=== PATIENT | female | born 1965 | race American Indian/Alaskan Native ===

== ENCOUNTER 2017-06-23 06:19 | Observation (INO) | payer OTHER ==
[2017-06-23] MEDS ORDERED: Sodium Chloride 0.9% 500 ML IV STA (07:12)
--- NOTE | 2017-06-23 07:32 | CP.PCM.CON ---
History of Present Illness - History of Present Illness History of Present Illness: ORthopedic consultation Dr. Malone 52F complains of severe right knee pain, she ssays she fell about a year ago, and the pain keeps getting worse to the point she can not walk without severe pain. No recent trauma, falls, denies fever/chills/CP/SOB/dizziness/palp Past Patient History - Past Social History Smoking Status: Never Smoked - PSYCHIATRIC Hx Substance Use: No - SURGICAL HISTORY Other/Comment: GASTRIC BYPASS, RT. CLAVICLE SURGERY, RT. KNEE - ANESTHESIA Hx Anesthesia: Yes Meds Home Medications: Home Medication List Medication Instructions Recorded Confirmed Type oxyCODONE/Acetaminophen [Percocet 1 ea PO Q4H PRN #20 tab 06/23/17 Rx 5/325 mg Tab] Allergies/Adverse Reactions: Allergies Allergy/AdvReac Type Severity Reaction Status Date / Time No Known Allergies Allergy Verified 06/23/17 06:36 - Medications Medications: Current Medications Sodium Chloride (Sodium Chloride 0.9%) 500 mls @ 100 mls/hr IV .Q5H STA Stop: 06/23/17 12:11 Physical Exam - Constitutional Appears: Well, In Acute Distress Additional comments: severe limp when attempting to walk - Extremities Exam Additional comments: lacking full extension pain with attempts at full extension calves soft NT neg homans +DP/PT pulses sensation intact Severe TTP medial joint line>left no lax varus/valgus - Expanded Lower Extremities Exam Right Knee exam: effusion, tenderness Ankle exam: FULL ROM Neuro vacular tendon exam: no vascular compromise - Neurological Exam Neurological exam: Alert, Oriented x3 - Psychiatric Exam Psychiatric exam: Normal Affect, Normal Mood - Skin Skin Exam: Dry, Intact, Normal Color, Warm Additional comments: mild effusion on right knee Results - Vital Signs Recent Vital Signs: Last Vital Signs Temp 98 F 06/23/17 06:36 Pulse 80 06/23/17 06:36 Resp 16 06/23/17 06:36 BP 144/57 L 06/23/17 06:36 Pulse Ox 100 06/23/17 06:36 - Labs Result Diagrams: 06/23/17 07:37 06/23/17 07:37 Assessment & Plan (1) Right knee pain Assessment and Plan: case d/w Dr. Malone keep pt NPO for arthroscopy labs ordered Status: Acute
--- NOTE | 2017-06-23 07:41 | CP.PCM.HP ---
History of Present Illness - History of Present Illness History of Present Illness: 52 y/o female seen in ED for R knee pain. Pt states she tripped and fell last year when she was walking on the street. Pt states she has been treated conservatively up until this point with Dr Malone via bracing and injections as well as Aleve. Pt states she is feeling significant pain whenever she tries to bend the knee and at all times when walking. Pt feels she has been unable to function on a daily basis due to the constant knee pain, and that it fluctuates from mild to severe throughout the day. Pt states she occasionally notices swelling around the knee joint. Pt denies F/C/N/V/CP/SOB. PMH: denies PSH: hysterectomy, gastric bypass, clavicular surgery ALL: NKDA Social: denies EtOH, cigarette or illicit drug use Family: denies family history of cancer, heart disease, or stroke. Admits to family history of HTN Present on Admission - Present on Admission Any Indicators Present on Admission: No Review of Systems - Review of Systems All systems: reviewed and no additional remarkable complaints except (per HPI) Past Patient History - Past Social History Smoking Status: Never Smoked - PSYCHIATRIC Hx Substance Use: No - SURGICAL HISTORY Other/Comment: GASTRIC BYPASS, RT. CLAVICLE SURGERY, RT. KNEE - ANESTHESIA Hx Anesthesia: Yes Meds Allergies/Adverse Reactions: Allergies Allergy/AdvReac Type Severity Reaction Status Date / Time No Known Allergies Allergy Verified 06/23/17 06:36 Physical Exam - Constitutional Appears: Well, Non-toxic, No Acute Distress - Head Exam Head Exam: ATRAUMATIC, NORMOCEPHALIC - Eye Exam Eye Exam: EOMI, Normal appearance, PERRL Pupil Exam: NORMAL ACCOMODATION, PERRL - ENT Exam ENT Exam: Mucous Membranes Moist, Normal Exam - Neck Exam Neck exam: Positive for: Full Rom, Normal Inspection Additional comments: supple, non-tender - Respiratory Exam Respiratory Exam: Clear to Auscultation Bilateral, NORMAL BREATHING PATTERN Additional comments: no wheezing, no rales, no respiratory distress - Cardiovascular Exam Cardiovascular Exam: REGULAR RHYTHM, +S1, +S2 Additional comments: no murmur, no gallop - GI/Abdominal Exam GI & Abdominal Exam: Normal Bowel Sounds, Soft Additional comments: non-tender - Rectal Exam Rectal Exam: Deferred - Extremities Exam Extremities exam: Positive for: normal capillary refill, normal inspection, pedal pulses present Additional comments: Mild tenderness elicited upon palpation of anterior and distal aspect of R knee joint. Moderate to severe tenderness elicited upon knee flexion. Antalgic gait noted on R side due to difficulty weightbearing. Mild to moderate non-pitting edema surrounding R knee joint. - Back Exam Back exam: NORMAL INSPECTION - Neurological Exam Neurological exam: Alert, Oriented x3 - Psychiatric Exam Psychiatric exam: Normal Affect, Normal Mood - Skin Skin Exam: Dry, Intact, Normal Color Results - Vital Signs Recent Vital Signs: Last Vital Signs Temp 98 F 06/23/17 06:36 Pulse 80 06/23/17 06:36 Resp 16 06/23/17 06:36 BP 144/57 L 06/23/17 06:36 Pulse Ox 100 06/23/17 06:36 - Labs Result Diagrams: 06/23/17 07:37 06/23/17 07:37 Assessment & Plan - Assessment and Plan (Free Text) Assessment: 52 y/o female seen in ED for R knee injury secondary to trauma Plan: Pt seen and evaluated in ED Discussed plan with attending Dr. Wu Discussed case with Ortho -Dr. Malone Pt to be taken to OR for knee arthroscopic surgery CXR shows no active disease EKG ordered Pt confirms she has been NPO since after midnight last night CBC, BMP and coags in chart
[2017-06-23 07:49] LABS: BASO % 0.8 % (0.0-2.0); EOS # 0.1 K/uL (0.0-0.7); EOS % 1.2 % (0.0-4.0); HEMATOCRIT 36.3 % (34.0-47.0); LYMPH % 21.7 % (20.0-40.0); MEAN CELL VOLUME 89.3 fl (81.0-99.0); MEAN CORPUSCULAR HEMOGLOBIN 29.6 pg (27.0-31.0); MEAN CORPUSCULAR HGB CONC 33.2 g/dL (33.0-37.0); MEAN PLATELET VOLUME 7.6 fl (7.2-11.7); MONO # 0.4 K/uL (0.0-0.8); MONO % 8.2 % (0.0-10.0); NEUT # 3.3 K/uL (1.8-7.0); NEUT % 68.1 % (50.0-75.0); NRBC % 0.1 % (0.0-0.0); RED CELL DISTRIBUTION WIDTH 14.8 % (11.5-14.5); WHITE BLOOD COUNT 4.8 K/uL (4.8-10.8)
--- NOTE | 2017-06-23 07:50 | RAD ---
HISTORY: pre op surgery COMPARISON: No prior. TECHNIQUE: Chest PA and lateral FINDINGS: LUNGS: No active pulmonary disease. PLEURA: No significant pleural effusion identified. No pneumothorax apparent. CARDIOVASCULAR: No radiographic findings to suggest acute or significant cardiovascular disease. OSSEOUS STRUCTURES: No significant abnormalities. VISUALIZED UPPER ABDOMEN: Normal. OTHER FINDINGS: None. IMPRESSION: No active disease. Please note: No preliminary interpretation of this examination rendered by emergency department personnel (Physician and/or PA declined to provide preliminary report of their findings/ observations).
--- NOTE | 2017-06-23 07:52 | ED PDOC ---
Lower Extremity Pain/Injury Time Seen by Provider: 06/23/17 06:45 Chief Complaint (Nursing): Lower Extremity Problem/Injury Chief Complaint (Provider): Right Knee Pain History Per: Patient History/Exam Limitations: no limitations Onset/Duration Of Symptoms: Days (x 1 year) Current Symptoms Are (Timing): Still Present Additional Complaint(s): Fiona is a 52 y/o female who presents to the ED complaining of right knee pain , ongoing for 1 year. States that last year she fell while crossing the street, and has been treated by Dr. Malone since. Denies any new injury or trauma. No calf pain, numbness, weakness, or tingling. Denies any chest pain, shortness of breath, nausea, vomiting, or diarrhea. Pain worsening and increased difficulty walking. PMD: Dr. Dumont Past Medical History Reviewed: Historical Data, Nursing Documentation, Vital Signs Vital Signs: Last Vital Signs Temp 98 F 06/23/17 06:36 Pulse 80 06/23/17 06:36 Resp 16 06/23/17 06:36 BP 144/57 L 06/23/17 06:36 Pulse Ox 100 06/23/17 06:36 - Medical History Other PMH: knee pain - Surgical History Other surgeries: Gastric bypass, right clavicle surgery, right knee surgery - Family History Family History: States: Unknown Family Hx - Social History Current smoker - smoking cessation education provided: No Alcohol: Social Drugs: Denies - Home Medications Home Medications: Ambulatory Orders Medication Instructions Recorded No Known Home Med 06/23/17 - Allergies Allergies/Adverse Reactions: Allergies Allergy/AdvReac Type Severity Reaction Status Date / Time No Known Allergies Allergy Verified 06/23/17 06:36 Review of Systems ROS Statement: Except As Marked, All Systems Reviewed And Found Negative Constitutional: Negative for: Fever, Chills Cardiovascular: Negative for: Chest Pain Respiratory: Negative for: Cough, Shortness of Breath Gastrointestinal: Negative for: Nausea, Vomiting, Abdominal Pain, Diarrhea Musculoskeletal: Positive for: Leg Pain (Right knee pain). Negative for: Other (Calf pain) Neurological: Negative for: Weakness, Numbness (and tingling), Headache, Dizziness Physical Exam - Reviewed Nursing Documentation Reviewed: Yes Vital Signs Reviewed: Yes - Physical Exam Appears: Positive for: Non-toxic, No Acute Distress Head Exam: Positive for: ATRAUMATIC, NORMOCEPHALIC Skin: Positive for: Normal Color, Warm, Dry Neck: Positive for: Normal, Painless ROM, Supple Cardiovascular/Chest: Positive for: Regular Rate, Rhythm. Negative for: Murmur Respiratory: Positive for: Normal Breath Sounds. Negative for: Accessory Muscle Use, Respiratory Distress Pulses-Dorsalis Pedis (L): 2+ Pulses-Dorsalis Pedis (R): 2+ Gastrointestinal/Abdominal: Positive for: Normal Exam, Soft. Negative for: Tenderness Extremity: Positive for: Normal ROM, Tenderness (diffuse tenderness to the right knee), Capillary Refill (< 2 sec). Negative for: Swelling, Other (Laxity of the right knee) Neurologic/Psych: Positive for: Alert, Oriented. Negative for: Motor/Sensory Deficits - Laboratory Results Result Diagrams: 06/23/17 07:37 06/23/17 07:37 Interpretation Of Abn Labs: no acute - ECG O2 Sat by Pulse Oximetry: 100 (RA) Pulse Ox Interpretation: Normal - Radiology X-Ray: Read By Radiologist X-Ray Interpretation: No Acute Disease - Progress ED Course And Treament: 2023: Spoke with Dr. Malone. Will consult. Spoke with Dr. Wu. Will admit. Pt. increasing pain. Will need further eval and treatment. Failed outpt tx. Medical Decision Making Medical Decision Making: Time: 7:11 Initial Plan: --EKG --BMP --Troponin I --CBC --PTT --Prothrombin time --Chest X-Ray --Sodium chloride IV 500 ml at 100 mls/hr --Toradol 15 mg IV --Paged hospitalist on-call, Dr. Wu --Patient will be admitted to Med/Surg for knee pain, under the service of Dr. Wu Scribe Attestation: Documented by Katerina Muller, acting as a scribe for Wm Arana MD Provider Scribe Attestation: All medical record entries made by the Scribe were at my direction and personally dictated by me. I have reviewed the chart and agree that the record accurately reflects my personal performance of the history, physical exam, medical decision making, and the department course for this patient. I have also personally directed, reviewed, and agree with the discharge instructions and disposition. Disposition - Clinical Impression Clinical Impression: Knee pain - Patient ED Disposition Is Patient to be Admitted: Yes Counseled Patient/Family Regarding: Studies Performed, Diagnosis - Disposition Disposition Time: 07:25 Condition: FAIR - Pt Status Changed To: Hospital Disposition Of: Observation - POA Present On Arrival: Falls Or Trauma
[2017-06-23 07:58] LABS: BLOOD UREA NITROGEN 14 mg/dl (7-17); CALCIUM 9.1 mg/dL (8.4-10.2); CARBON DIOXIDE 26 mmol/L (22-30); CHLORIDE 108 mmol/L (98-107); GFR AFRICAN-AMERICAN > 60; GLUCOSE,RANDOM 84 mg/dL (65-105); SODIUM 142 mmol/l (132-148)
[2017-06-23 08:00] LABS: PARTIAL THROMBOPLASTIN TIME 34.6 Seconds (25.6-37.1)
[2017-06-23 08:53] LABS: RBC URINE 15 /hpf (0-3); URINE BILIRUBIN NEGATIVE (NEGATIVE); URINE BLOOD SMALL (NEGATIVE); URINE COLOR YELLOW (YELLOW); URINE GLUCOSE (UA) NEG (Normal); URINE KETONE NEGATIVE (NEGATIVE); URINE LEUKOCYTE ESTERASE NEG Leu/uL (Negative); URINE PROTEIN 30 mg/dL (NEGATIVE); URINE UROBILINOGEN 0.2-1.0 mg/dL (0.2-1.0); WBC URINE 3 /hpf (0-5)
[2017-06-23] MEDS ORDERED: Lidocaine 2% Jelly (5 ml) TOP ONE (09:04)
[2017-06-23] MEDS ORDERED: Lidocaine 1% 5ml Abboject IV ONE (09:04)
[2017-06-23] MEDS ORDERED: Propofol 10 mg/ml Inj (20 ML) ONE (09:04)
[2017-06-23] MEDS ORDERED: Midazolam 2 MG/2 ML VIAL ONE (09:04)
[2017-06-23] MEDS ORDERED: Lactated Ringer's 1,000 ML IV ONE (09:40)
[2017-06-23] MEDS ORDERED: Lidocaine 1% Inj (20ml) IJ ONE (10:10)
[2017-06-23] MEDS ORDERED: MethylPREDNISolone Depo 40 mg/ml Inj ONE (10:28)
[2017-06-23] MEDS ORDERED: Bacitracin Ointment 30 GM TUBE ONE (10:28)
[2017-06-23] MEDS ORDERED: methylPREDNISolone Depo 80 mg/ml Inj ONE (10:28)
[2017-06-23] MEDS ORDERED: Morphine 1 mg/ml preservative-free Inj(Duramorph) ONE (10:43)
[2017-06-23] MEDS ORDERED: Bupivacaine 0.5% 50 ML IJ ONE (10:56)
[2017-06-23] MEDS ORDERED: methylPREDNISolone Depo 80 mg/ml Inj IM ONE (10:56)
[2017-06-23] MEDS ORDERED: Oxycodone/Acetaminophen 5/325 mg Tab PO PRN (11:09)
--- NOTE | 2017-06-23 11:12 | PCM.SURG1 ---
Surgeon's Initial Post Op Note - Surgeon's Notes Surgeon: Jacque Malone MD Baton Twirler: Fadi Smiley PA_C Anesthesia Administered By: Dr. Erazo Pre-Operative Diagnosis: RIght knee medial and lateral meniscal tears Operative Findings: tourniquet: 49 min @ 350mmHg Post-Operative Diagnosis: as above. symptomatic plica Operation Performed: 1. Right knee arthroscopy partial medial and lateral meniscal tears. 2. RIght knee symptomatic plica. 3. Tricompartmental synovectomy. 4. Chondroplasty. 5. Intraarticular injection Specimen/Specimens Removed: none Estimated Blood Loss: EBL {In ML}: 2 Date of Surgery/Procedure: 06/23/17 Time of Surgery/Procedure: 11:16 (ALUMINIZER reviewed, T#3 03/30/17, patient counseled)
[2017-06-23] MEDS ORDERED: HYDROmorphone 0.5 mg/0.5 ml ISec IVP PRN (11:18)
[2017-06-23] MEDS ORDERED: Lactated Ringer's 1,000 ML IV SCH (11:30)
[2017-06-23] MEDS: HYDROmorphone 0.5 mg/0.5 ml ISec IVP PRN ×2 (12:00→12:20)
[2017-06-23 12:24] VITALS: RESP 18
--- NOTE | 2017-06-23 15:28 | CARD ---
APPROVED REPORT EKG Measurement Heart [id number] <Conclusion> Normal sinus rhythm Normal ECG
[2017-06-23 16:12] VITALS: BP 110/65; PULSE 66; TEMP 97.8; O2SAT 99
--- NOTE | 2017-06-24 08:45 | OP ---
PROCEDURE DATE: 06/23/2017 PREOPERATIVE DIAGNOSIS: Internal derangement of the right knee. POSTOPERATIVE DIAGNOSES: Complex tear of the medial meniscus, tear of the lateral meniscus, tricompartmental synovitis, arthritic change; medial femoral condyle femoral trochlea. PROCEDURE: 1. Surgical arthroscopy and chondroplasty of the femoral trochlea. 2. Surgical arthroscopy, partial medial and lateral meniscectomy. 3. Surgical arthroscopy, partial tricompartmental synovectomy. 4. Surgical arthroscopy and resection of plica. 5. Intraarticular injection. SURGEON: Eric Malone MD HVAC REFRIGERATION TECHNICIAN: Sally Jacinto PA-C ANESTHESIA: General endotracheal. ANESTHESIA ADMINISTERED BY: Damaris Erazo MD COMPLICATIONS: No complications. DRAINS: No drains. OPERATIVE INDICATION: Fiona Deal is a 52-year-old woman who has pain and restricted range of motion of the knee. The patient had a surgical arthroscopy in March, which unfortunately failed. Pros, cons, risks, and benefits of surgical arthroscopy discussed. MRI examination shows evidence of a retained medial meniscal fragment. OPERATIVE PROCEDURE: After having obtained informed consent and after thoroughly discussing the pros, cons, risks, and benefits of the surgical approach, the possibility of mechanical failure, infection, thromboembolic disease, the possibility of later need for replacement arthroplasty was discussed. The patient can understand the discomfort and wished the surgery to be accomplished. OPERATIVE PROCEDURE: After sterilely prepping and draping, after having identified the side and site of the procedure and a critical pause/time-out, after the satisfactory induction of the anesthetic, after sterilely prepping and draping, the joint is insufflated with 10 mL of 1% lidocaine without epinephrine. An anterolateral portal was described using #18-gauge spinal needle followed by #11 blade followed by spreading, followed by introduction of the blunt trocar with the arthroscope anterolaterally, it is found to be an extensive tricompartmental synovitis. With the arthroscope anterolaterally, careful partial tricompartmental synovectomy is accomplished both to improve visualization and to ablate irritative tissue. This is accomplished after triangulation is accomplished using a #18-gauge spinal needle one thumbs breadth medial to the inferior pole of the patella. Using #11 blade followed by spreading with the arthroscope anterolaterally, there was found to be an exuberant tricompartmental synovitis. Please refer to the video photographs. Careful partial tricompartmental synovectomy having been accomplished, bleeding points were controlled with the [place] surface wand. With the surgeon exerting a general valgus stress, there is found to be a retained tear of the posterior horn of the medial meniscus. The arthroscope was placed anteromedially and the tear was probed. Please refer to the video photographs. This having been accomplished, with the arthroscope anteromedially, a careful partial tricompartmental synovectomy having been accomplished. A third portal was accomplished anterocentrally using #18-gauge spinal needle followed by #11 blade, followed by spreading, followed by introduction of the blunt trocar. With the arthroscope was transferred anterolaterally, and the deep posterior horn, which was torn, and the retained meniscal fragment is initially trimmed using the arthroscopic scissor. The arthroscope was placed now anterocentrally using the grasper, with the arthroscope anterocentrally with the grasper anterolaterally. Using a combination of the arthroscopic wand and the arthroscopic scissor, the retained posterior horn fragment is excised. Please refer to the video photographs. The arthroscope was placed again anterolaterally with the surgeon exerting a general valgus stress. Using upbiting basket forceps, a partial medial meniscectomy is completed using a combination of the shaver and the basket forceps. This having been accomplished, with the arthroscope anterolaterally, partial medial meniscectomy having been accomplished, the inner free edge was smoothed using the articular wand. The arthroscope anterolaterally with the knee in [id number] position, there was found to be a tear of the inner free edge of the lateral meniscus. Using a combination of straight biting basket forceps and the side biting basket forceps, a partial lateral meniscectomy was accomplished. The inner free edge was smoothed using the [employer] surface wand. Careful partial tricompartmental synovectomy is completed. Anterior cruciate ligament is found to be intact. There is found to be evidence of full-thickness chondral damage in the area of the femoral trochlea. With the arthroscope anteromedially, a chondroplasty is accomplished using the arthroscopic shaver and the 5.4 mm [employer] suction punch. Chondroplasty having been accomplished, tricompartmental synovectomy is completed. Bleeding points controlled. The wound is thoroughly irrigated. Prior to closure, there was found to be evidence of a symptomatic plica across the medial femoral condyle with the arthroscope anterolaterally. The plica is carefully resected. This is a true plica that is indenting the medial femoral condyle. Chondroplasty having been accomplished, the plica having been resected, closures in layers with interrupted Vicryl and nylon, intraarticular injection is offered. Jc Sesay compression dressing is accomplished. It should be noted that the patient was admitted through the emergency room, the patient had been treated conservatively after her arthroscopy. She was known to my practice; although, Dr. Haddad had done the arthroscopy. The patient had increasing pain, unable to bear the pain, the knee locked, and the patient was admitted through the emergency room at [facility] as a true orthopedic emergency. The patient stabilized, taken to surgery, and the aforementioned . Eric Malone MD
== END 2017-06-23 16:30 | disposition home or self-care (01) ==
LOC: H.ER 06:19 → H.ERHOLD 07:17
PROVIDERS: ADMIT Hospitalist; ATTEND Hospitalist
DX: S83.231A Complex tear of medial meniscus, current injury, right knee, initial encounter (principal); S83.281A Other tear of lateral meniscus, current injury, right knee, initial encounter; W01.0XXA Fall on same level from slipping, tripping and stumbling without subsequent striking against object, initial encounter; Y93.01 Activity, walking, marching and hiking; Y92.410 Unspecified street and highway as the place of occurrence of the external cause; M65.9 Synovitis and tenosynovitis, unspecified; Z98.84 Bariatric surgery status; Z68.36 Body mass index [BMI] 36.0-36.9, adult
CPT/HCPCS: 29880; 71020; 80048; 81003; 81025; 84484; 85025; 85610; 85730; 88305; 93005; 96374; 97116; 97161; 99284; G0378; G8978; G8979; G8980; J0171; J0690; J1040; J1170; J1885; J2250; J2270; J2704; J2765; J3010; J7030; J7040; J7120